=== PATIENT | female | born 1935 | race Caucasian/White ===

== ENCOUNTER → 2016-05-01 | Outpatient (CLI) | payer OTHER, BC ==
[~2016-05-01] MED LIST: ASPIRIN81 M2 PO; ATENOLOL 50 MG50 M1 PO; BENTYL10 MG PO; BIOTIN2500 MCG PO; DOXEPIN 75 MG C75 M1 PO; K-DUR 20 MEQ T20 MEQ PO; LASIX 20 MG TAB20 MG PO; LIPITOR10 MG PO; MOBIC7.5 MG PO; NORCO 5-325 TA1 EACH PO; PERCOCET 5-3251 EACH PO; PRILOSEC 20 MG20 MG PO
== END ==
LOC: RAD 16:00
DX: J90 Pleural effusion, not elsewhere classified (principal); R09.89 Other specified symptoms and signs involving the circulatory and respiratory systems

== ENCOUNTER 2016-05-21 11:36 | Inpatient (IN) | payer OTHER, BC ==
[~2016-05-21] VITALS: Ht 160 cm; Wt 82.4 kg
--- NOTE | ~2016-05-21 | EKG ---
[address] [place] [address] ELECTROCARDIOGRAM REPORT Name: CHET LUO Room #: 170-11 ADM IN M.R.#: [id number] Admission: 05/21/16 Attend Phys: Vitaliy Win Discharge: Date of : 35 Report #: [id number] THIS REPORT FOR: //name// [facility] ED Test Date: 2016-05-21 Test Time: 12:33:20 Pat Name: CHET LUO Department: Room: 170 Gender: F Certified Cytotechnologist: ARVIN : 1935 Requested By: Sai Li Order Number: [id number] MD: Roderick Gould Measurements Intervals [place] Rate: 59 P: DC: QRS: -2 QRSD: 107 T: 23 QT: 435 QTc: 431 Interpretive Statements Sinus rhythm. Incomplete left bundle branch block Low voltage, extremity leads No previous ECG available for comparison Electronically Signed On 05-21-2016 14:34:44 CDT by Roderick Gould [email or web address] <ELECTRONICALLY SIGNED> By: Roderick Gould MD 05/21/16 1434 1233 1233 Roderick Gould MD /RAFA
--- NOTE | ~2016-05-21 | S ---
[facility] [place] [address] SURGICAL PATH RPT PROCEDURE Name: SANTA VALDES Room #: 547-P DIS IN M.R.#: [id number] Admission: 05/21/16 Date of : 35 Discharge: 05/25/16 Report #: [id number] Path Case #: [id number] PATHOLOGY REPORT COLLECTION DATE: 05/21/2016 RECEIVED DATE: 05/22/2016 SUBMITTING PHYS: Dr. Freddy Deluna OTHER PHYS: Sai Cordero SPECIMEN(S) RECEIVED: A.Bone marrow, clot B.Bone marrow, biopsy C.Bone marrow, aspirate smears D.Peripheral smear * * * * * * * * * * * * FINAL DIAGNOSIS: Bone marrow aspirate, biopsy, cell clot and peripheral blood: - Peripheral blood with severe macrocytic normochromic anemia, severe thrombocytopenia and leukoerythroblastosis. - BONE MARROW WITH EXTENSIVE REPLACEMENT BY METASTATIC CARCINOMA. (PLEASE SEE COMMENT) COMMENT: The bone marrow biopsy shows extensive replacement of the normal hematopoiesis by metastatic carcinoma. The tumor cells are noted in small clusters, and are medium to large size with slightly round nuclear borders and small amount of cytoplasm. Few rare residual hematopoietic elements are noted. These findings are consistent with the patient's clinical history of breast cancer. Compared to the patient's previous mastectomy specimen ([id number]), both tumors appear morphologically similar. There is also mild dyserythropoiesis noted with few nuclear budding. These findings may represent myelodysplastic neoplasm however, it should be noted that with only few hematopoietic elements available for analysis, accurate morphologic evaluation of myelodysplastic changes is precluded. Correlation with clinical findings and cytogenetic studies is recommended. These findings were discussed with Dr. Ctaracho Cordero on 05/25/16 at 2:45 pm. Co-reviewed: Dr. Crystal Velazquez (JMQ:csd; d/t: 05/28/2016) PATHOLOGIST: Cynthia Mijares M.D. [address] [address] SURGICAL PATH RPT PROCEDURE Name: SANTA VALDES Room #: 547-P [facility] IN M.R.#: [id number] Admission: 05/21/16 Date of : 35 Discharge: 05/25/16 Report #: [id number] Path Case #: [id number] REPORT ELECTRONICALLY SIGNED BY: Cynthia Mijares M.D. DATE/TIME: 05/28/2016 23:29 * * * * * * * * * * * * MICROSCOPIC DESCRIPTION: CBC DATA (05/21/16): WBC: 12.0; RBC: 2.01; Hgb: 7.8; Hct: 24.3; MCV: 121.0; RDW: 23.3. Platelets: 80,000. White blood cell differential: 45% segs, 1% bands, 34% lymphs, 13% mono, 6% eos, 1% metamyelocytes, 29% nucleated red blood cells. Peripheral blood: Red blood cells are normochromic with mild anisopoikilocytosis including occasional microcytic and macrocytic forms, rare bite cells, rare schistocytes and few target cells. Occasional nucleated red blood cells are noted. White blood cells are normal in number with predominance of mature segmented neutrophils. There is mild myeloid left shift with rare metamyelocytes without circulating blasts observed. Platelets are severely decreased with normal morphology. The lymphocytes are mostly small and mature. Bone marrow aspirate: Aspirate smears are hemodilute containing no spicules. Few scattered hematopoietic elements are noted. Erythroid precursors show few nuclear budding. Megakaryocytes are not easily identified. There is no increase in blasts identified. Touch imprints from the core biopsy shows clusters of epithelioid cells. The epithelioid cells are medium to large size with fairly round slightly irregular nuclear borders and small amount of cytoplasm. Iron stain: negative due to inadequate tissue present Bone marrow biopsy and cell clot: The normal marrow hematopoiesis is extensively replaced by metastatic carcinoma, similar to the epithelioid cells noted in the touch imprints. Rare residual hematopoietic elements are noted. The cell clot is mostly composed of clotted blood with few clusters of malignant epithelioid cells. Iron stain: adequate (JA:csd; d/t: 05/28/2016) Flow cytometry: Immunophenotypic studies by flow cytometry do not show diagnostic phenotypic abnormalities. An increased percentage of NK cells is detected. The significance of this is uncertain. This may represent a reactive population, but a lymphoproliferative disorder cannot be excluded. Benign NK cells can be seen in association with viral infections. There is no evidence of acute leukemia, B-cell lymphoma, plasma cell dyscrasia, or immunophenotypic changes associated with myelodysplasia detected in this analysis. T-cells comprise approximately 49% of total cells with a CD4:CD8 ratio of 0.8 without overt phenotypic abnormality. NK-cells are increased and are CD56 [facility] [place] [place] [address] [place] [address] SURGICAL PATH RPT PROCEDURE Name: SANTA VALDES Room #: 443-P DIS IN M.Jessica.#: [id number] Admission: 05/21/16 Date of : 35 Discharge: 05/25/16 Report #: [id number] Path Case #: [id number] positive, CD16 positive, CD3 negative, CD2 positive, CD5 negative, and CD7 positive. Mature B-cells comprise approximately 7% of lymphoid cells, are polyclonal with a kappa lamda ratio of 1.75. Monocytes and granulocytes show phenotypic evidence of maturation without dysmaturation. Blasts are not increased (please see separate flow cytometry report from [email or web address] [id number]). (JMQ:; d/t: 05/28/16) GROSS PATHOLOGY: A. Received in formalin labeled "Santa Valdes and clot (BM aspirate)," is blood coagulum, measuring 1.8 x 1.3 x 0.2 cm in aggregate dimensions. The specimen is submitted entirely in cassette A1. B. Received in formalin labeled "Santa Valdes and BM biopsy," are 4 needle cores of fang bone, ranging from 0.3 to 1.2 cm in length and 0.2 cm in diameter. The specimen is submitted entirely in cassette B1, following decalcification. (TTL; 05/23/2016) PROCEDURE: The bone marrow biopsy is performed by Dr. Keith Deluna at [facility] [place] [place]. Specimens are submitted for morphology, flow cytometry and cytogenetic studies. CLINICAL HISTORY: The patient is an 80-year-old female with a clinical history of breast cancer. A bone marrow biopsy is performed. INITIAL CPT CODE(S): 47890 A; 92359, 78108 B; 26487, 93052 C; 05180, 69782 Professional services performed by [facility] at [facility], [address] [place] [address]. Technical services performed by [facility] at [address] [place] [address], [address], [place] [address]. [facility] [address] [place] [address] PHONE: [phone] DIRECTOR: Burke Gaspar M.D. * * * END OF REPORT * * *
--- NOTE | ~2016-05-21 | EKG ---
[address] [place] [place] [address] ELECTROCARDIOGRAM REPORT Name: CHET LUO Room #: 170-11 ADM IN M.R.#: [id number] Admission: 05/21/16 Attend Phys: Vitaliy Win Discharge: Date of : 35 Report #: [id number] THIS REPORT FOR: //name// [facility] ED Test Date: 2016-05-21 Test Time: 14:18:31 Pat Name: CHET LUO Department: Room: 170 Gender: F Treasury Assistant: MZOOK : 1935 Requested By: Sai Li Order Number: [id number] MD: Roderick Gould Measurements Intervals [place] Rate: 60 P: KS: QRS: 14 QRSD: 109 T: 28 QT: 451 QTc: 451 Interpretive Statements Sinus rhythm Low voltage, extremity leads No previous ECG available for comparison Electronically Signed On 05-21-2016 14:38:53 CDT by Roderick Gould [email or web address] <ELECTRONICALLY SIGNED> By: Roderick Gould MD 05/21/16 1438 1418 1418 MD KEVYN Arroyo
--- NOTE | ~2016-05-21 | P ---
[facility] [place] [address] PROCEDURE REPORT Name: CHET LUO Room #: 547-P [facility] IN M.R.#: [id number] Admission: 05/21/16 Attend Phys: Vitaliy Win Discharge: 05/25/16 Date of : 35 Report #: [id number] THIS REPORT FOR: //name// CC: Maame Cordero MD BRIEF HISTORY: The patient is an 80-year-old woman with a history of metastatic breast cancer who has an abnormal gastric emptying study and also an abnormal upper GI with incomplete distention of the stomach. Discussed with Dr. Cordero, he is concerned about metastatic involvement of the stomach with her breast cancer. PREOPERATIVE DIAGNOSIS: Abdominal pain and abnormal radiologic studies of stomach. POSTOPERATIVE DIAGNOSES: 1. Thickened folds of stomach. 2. Small hiatus hernia. MEDICATIONS: Deep sedation with propofol per anesthesia. SPECIMEN: Biopsies of gastritis. ESTIMATED BLOOD LOSS: 3 mL. PROCEDURE: EGD with biopsy. FINDINGS: Prior to propofol sedation, procedure of upper endoscopy was discussed with the patient as well as potential risks, benefits, and complications. She indicates she understands and desires to proceed. DESCRIPTION OF PROCEDURE: With the patient in left lateral decubitus position, the Wagoni video endoscope was inserted in the cervical esophagus under direct vision without difficulty. Examination of this organ through its entire length revealed normal esophageal mucosa. The scope was advanced and a small hiatus hernia was encountered. The mucosa in the hernia was unremarkable. The scope was advanced into the stomach, which was examined on end view as well as retroflexed views. Upon entering the stomach, the gastric folds appeared very prominent; however, they appeared benign and the mucosa was intact without evidence of ulcerations or erosions. This pattern was most notable in the body and the fundus of the stomach. In the antrum, the folds were less prominent. The stomach was fully insufflated. The area was examined in a retroflexed position, no mass lesions were seen. It is noted that upon full insufflation, the stomach with air, not all the gastric folds completely flattened. There was [facility] [address] [place] [address] PROCEDURE REPORT Name: CHET LUO Guadalupe Room #: 547-P DIS IN .R.#: [id number] Admission: 05/21/16 Attend Phys: Vitaliy Win Discharge: 05/25/16 Date of : 35 Report #: [id number] still fairly prominent. The pylorus was normal. Duodenal bulb was normal. Postbulbar duodenal sweep was normal. At that point, the scope was withdrawn and careful circumferential views were obtained. Biopsies obtained of the gastric folds. Scope was withdrawn. The patient tolerated the procedure well. In addition, the esophageal varices were not seen. DISPOSITION: The patient with metastatic breast cancer and abnormal studies as noted above. I do not see obvious malignant lesion in her stomach. However, the folds are much more prominent than usual, not completely flattened. Biopsies were obtained, but it is possible she may have metastatic involvement of the murcia of the stomach which may not be evident on mucosal biopsies. We will follow up on biopsies and make further recommendations. If biopsies were nondiagnostic, consider endoscopic ultrasound for further evaluation. <ELECTRONICALLY SIGNED> By: Cortes Paredes MD 05/28/16 1538 1517 0234 Cortes Paredes MD /nt
--- NOTE | ~2016-05-21 | 2DMMODE ---
[facility] [place] [address] 2 D/M-MODE ECHOCARDIOGRAM Name: CHET LUO Room #: 207-P [facility] [place] [facility].#: [id number] Admission: 05/21/16 Attend Phys: Vitaliy Felix Discharge: Date of : 35 Date of Service: 05/22/16 1528 Report #: [id number] THIS REPORT FOR: //name// APPROVED REPORT Study performed: 05/22/2016 13:30:03 EXAM: Comprehensive 2D, Doppler, and color-flow Echocardiogram Patient Location: Bedside Blood Pressure: 172/60 mmHg HR: 68 bpm Other Information Study Quality: Good Indications Abnormal ECG 2D Dimensions RVDd: 35.05 mm LVEF(%): 63.58 (>50%) IVSd: 8.69 (7-11mm) LVOT Diam: 17.09 (18-24mm) LVDd: 58.86 mm PWd: 9.70 (7-11mm) Ascending Aorta: 31.66 mm LVDs: 38.20 (25-40mm) IVC: 18.00 mm Aortic Root: 28.63 mm Ruiz's LVEF: 63.58 % Volumes Left Atrial Volume (Systole) Single Plane 4CH: 64.82 mL Single Plane 2CH: 58.81 mL LA ESV Index: 37.00 mL/m2 Aortic Valve AoV Peak Jules.: 1.93 m/s AO Peak Gr.: 14.89 mmHg LV Max P.72 mmHg LV Max: 1.20 m/s Mitral Valve MV PHT: 90.81 ms MV E Max Jules.: 1.35 m/s E/A Ratio: 1.1 MV A Jules.: 1.18 m/s MV Decel. Time: 313.13 ms [facility] [place] [address] 2 D/M-MODE ECHOCARDIOGRAM Name: CHET LUO Room #: 207-P [facility] [place] ..#: [id number] Admission: 05/21/16 Attend Phys: Vitaliy Felix Discharge: Date of : 35 Date of Service: 05/22/16 1528 Report #: [id number] Pulmonary Valve PV Peak Jules.: 1.17 m/s PV Peak Gr.: 5.43 mmHg Tricuspid Valve TR Peak Jules.: 3.04 m/s RAP Estimate: 5.00 mmHg TR Peak Gr.: 36.92 mmHg Left Ventricle The left ventricle is normal size. There is normal LV segmental wall motion. There is normal left ventricular wall thickness. The left ventricular systolic function is normal. The left ventricular ejection fraction is within the normal range. LVEF is 55-60%. Grade II diastolic dysfunction Right Ventricle The right ventricle is normal size. The right ventricular systolic function is normal. Atria Left atrium is dilated. The right atrium size is normal. Aortic Valve The aortic valve is normal in structure. No aortic regurgitation is present. There is no aortic valvular stenosis. Mitral Valve The mitral valve is normal in structure. Trace mitral regurgitation. There is no mitral valve stenosis. Tricuspid Valve The tricuspid valve is normal in structure. There is trace tricuspid regurgitation. The right atrial pressure is estimated at 5 mmHg. There is mild pulmonary hypertension. The estimated PAP was 42 mmHg. Pulmonic Valve The pulmonary valve is normal in structure. There is no pulmonic valvular regurgitation. Great Vessels The aortic root is normal in size. IVC is normal in size and collapses >50% with inspiration. Pericardium There is no pericardial effusion. [facility] [address] [place] [address] 2 D/M-MODE ECHOCARDIOGRAM Name: CHET LUO Room #: 207-P [facility] [place] ..#: [id number] Admission: 05/21/16 Attend Phys: Vitaliy Felix Discharge: Date of : 35 Date of Service: 05/22/16 1528 Report #: [id number] <Conclusion> The left ventricular systolic function is normal. There is normal LV segmental wall motion. LVEF is 55-60%. Grade II diastolic dysfunction Left atrium is dilated. The aortic valve is normal in structure; No aortic valvular stenosis or insufficiency. There is mild pulmonary hypertension. The estimated PAP was 42 mmHg. There is no pericardial effusion. <ELECTRONICALLY SIGNED> By: Andrews Blackwood MD, FACC 05/22/16 1528 1528 1528 Andrews Blackwood MD, [facility] /INF
--- NOTE | ~2016-05-21 | HC ---
[facility] [place] [address] CONSULTATION Name: CHET LUO Room #: 207-P [facility] IN M.R.#: [id number] Admission: 05/21/16 Attend Phys: Vitaliy Win Discharge: Date of : 35 Report #: [id number] THIS REPORT FOR: //name// CC: Maame Cordero REASON FOR CONSULTATION: History of breast cancer and cytopenias. HISTORY OF PRESENT ILLNESS: The patient is an 80-year-old female who has been a patient of mine for quite some time, who recently has been followed for breast cancer. It was found to be progressive on a PET scan in early 2016. We are making plans to switch from Ibrance and Femara to Xeloda. She had been having some worsening macrocytosis and anemia and liver function test. PET scan had shown bony disease, had not really showing any liver disease. We have been trying to get her in for bone marrow biopsy, but she had had an intercurrent respiratory infection, which has now improved. She had some progressive weakness and was admitted to the hospital yesterday. At this time, she does not really have any headache, fevers or chills. Does have anorexia with some slight nausea, not really has any emesis. No trouble swallowing. Mouth is extremely dry. Did have troubles with restless legs that was exacerbated with her Compazine. Does have upper abdominal discomfort and fullness, worse when she eats, worse with pressure. It sounds like no blood in her urine or stool; may be has slightly loose bowels, not really constipation. Has had weak legs, it is generalized in nature, not right or left. No skin rash. Not really any arm or leg swelling and just sort of feels very fatigued, not really short of breath. No trouble moving her air. PAST MEDICAL HISTORY: Notable for the history of the breast cancer, originally diagnosed in 1999 with a left-sided stage II ER, [place] positive breast cancer, had 4 cycles of Taxotere, Cytoxan, then Tamoxifen. Note the Arimidex was poorly tolerated at that time. She then had a second contralateral left breast cancer in January 2012. It was 17 nodes positive and also at that same time has shown bony metastasis. In February of 2012, she was begun on Faslodex and Arimidex, with a drop in her tumor markers. She also had radiation with Dr. Antony. She continued on those drugs until January 2015 and at that time, had a PET scan that showed progressive disease and we switched to Palbociclib and Femara. She was on that from January of 2015 until March of 2016, when a scan showed progressive disease, slightly from the prior one. Also had a pleural effusion and I do not believe any changes in the liver and those were discontinued and the plan was to begin Xeloda, though she has had several respiratory infections that have made her difficult since that time. She has also had a history of macrocytosis noted in July of 2015. Liver functions have been normal at that time. MCV was as high as 123. Also has a history of lipid abnormality, also [facility] [address] [place] [address] CONSULTATION Name: CHET LUO Room #: 207-P [facility] IN M.R.#: [id number] Admission: 05/21/16 Attend Phys: Vitaliy Win Discharge: Date of : 35 Report #: [id number] hypothyroidism, also history of presumed restless legs. She also has a history of right total hip replacement in 1995, cholecystectomy with one tube and ovary removed in the past, irregular heart beat or palpitations periodically, has a history of hiatal hernia and reflux and left hip replacement. SOCIAL HISTORY: She is a former smoker. Alcohol, not drinking currently. several years ago. MEDICATIONS: As an outpatient had included acyclovir 400 mg for cold sores; aspirin 81 mg; atenolol 50 mg; azithromycin, which had been completed; calcium carbonate daily; capecitabine, which had not been begun yet; cyclobenzaprine as needed; Xgeva, denosumab, as an outpatient; docusate as needed; Sinequan 75 mg at bedtime; furosemide 20 mg daily; hydrocodone p.r.n.; levothyroxine 25 mcg daily; meloxicam 7.5 mg daily; omeprazole 20 mg daily; potassium chloride 20 mEq daily; Mirapex 0.5 mg as needed and Compazine, which caused restless legs has been held. Medications here in the hospital currently include aspirin 81 mg, simethicone 80 mg p.r.n., doxepin 50 at bedtime, cefuroxime 250 mg b.i.d., atorvastatin 10 mg at bedtime, furosemide 40 b.i.d., Zofran 4 mg q.4h. p.r.n., Percocet q.4h. p.r.n., Tylenol p.r.n., Ambien 5 mg p.r.n., MiraLax 17 grams daily p.r.n., nitroglycerin p.r.n. and IV fluids. PHYSICAL EXAMINATION: GENERAL: The patient appears her stated age. VITAL SIGNS: Height is 5 feet 3, 160 cm. Weight is 184 pounds, which is 83.5 kilograms. Blood pressure is 159/40, O2 sat 92%, respirations 20, pulse 69 and temperature 97.5. MOOD: She is pleasant and conversant. NEUROLOGIC: Moving extremities. HEENT: Face is symmetrical. Oropharynx is clear of injection or erythema. It is dry. No leukoplakia. LUNGS: Appear to have clear, symmetric unlabored respirations. HEART: Appears to be regular rate. LYMPHATICS: No enlarged lymph nodes in the supraclavicular, cervical or inguinal region. ABDOMEN: Slightly obese. It is slightly tender in the upper quadrant. I think I may feel enlarged liver in the epigastrium. EXTREMITIES: Without clubbing or cyanosis. There may be some trace edema. LABORATORY DATA: Lab on this admit has included a BUN of 23, creatinine of 1.7. Total bilirubin of 2.4, which is similar to that as an outpatient within the last month or so; AST 107, which is not dissimilar ; direct bilirubin is 1 and alkaline phosphatase 249. Uric acid 11.7. Albumin 2.3. Iron is 143, TIBC 158 and percent saturation 91. Coags are pending. White count 12; hemoglobin 7.8, which is not dissimilar; MCV 121, unchanged; RDW 23.3 and platelet count 80,000, [place] [address] CONSULTATION Name: CHET LUO Guadalupe Room #: 207-P ADM IN M.R.#: [id number] Admission: 05/21/16 Attend Phys: Vitaliy Win Discharge: Date of : 35 Report #: [id number] which has been present for about 4 months. Differential does include metamyelocytes and some NRBCs. Haptoglobin pending. TSH 4.2. Folate 17.7. B12 greater than 6000. U/A did show 0-3 squamous cells, few white cell clumps, 6-15 per high-powered field white cells, rbcs 0-2 and bacteria 1-9. Imaging this admit includes chest x-ray from yesterday with decreased inspiratory effort, mild congestive heart failure, could be similar in appearance to some of the perihilar and basilar prominence. Ultrasound ordered and is pending. ASSESSMENT AND PLAN: 1. Metastatic breast cancer, most likely progressive on recent PET scan from March, awaiting bone marrow results before proceeding with Xeloda. I am concerned this may be progressive disease, myelophthisic process in the bone marrow, but it can also be MDS from past chemo. We will hold off on Xeloda or other chemo until we have bone marrow results. 2. Cytopenias. We will check bone marrow biopsy. I do not think this is a B12, folate or iron deficiency picture. I am still not that strongly suspicious of that is on the differential with an elevated LDH and total bilirubin. We will check a hemosiderin and haptoglobin. Note that Syed is negative. 3. Abdominal discomfort with liver function elevation. We will check ultrasound to check liver. 4. Hypothyroid, replace. 5. Hyperlipidemia. Continues atorvastatin. 6. Hypertension. Meds as needed. 7. Reflux. PPI as needed. 8. Restless legs, Mirapex as needed. 9. Nausea, Zofran. Avoid Compazine. 10. Bony mets, had been on denosumab. We will follow with you. <ELECTRONICALLY SIGNED> By: Catracho Cordero MD 05/23/16804 08 1217 Catracho Cordero MD /nt
[2016-05-21 11:37] VITALS: BP 196/94
[2016-05-21 11:55] LABS: URINE BILIRUBIN NEGATIVE (Negative); URINE BLOOD NEGATIVE (Negative); URINE COLOR YELLOW; URINE GLUCOSE-RANDOM* NEGATIVE (Negative); URINE KETONES NEGATIVE (Negative); URINE NITRITE NEGATIVE (Negative); URINE PROTEIN (DIPSTICK) NEGATIVE (Negative); URINE UROBILINOGEN 0.2 E.U./dl (0.2-1.0)
[2016-05-21 12:04] LABS: CASTS None Seen /LPF (None Seen); CRYSTALS None Seen /LPF (None Seen); SQUAMOUS 0-3 Few /LPF (0-3)
[2016-05-21 12:05] LABS: BACTERIA 1-9 Few /HPF (None Seen); URINE RBC 0-2 Rare /HPF (0-2); URINE WBC 6-15 Few /HPF (0-5); WBC CLUMPS Few (None Seen)
[2016-05-21 12:57] LABS: HEMATOCRIT 24.3 % (37.0-47.0); HEMOGLOBIN 7.8 gm/dL (12.0-15.0); MCH 38.8 pg (26.0-34.0); MCHC 32.1 g/dL (28.0-37.0); RBC 2.01 mil/uL (4.20-5.00); RDW 23.3 % (10.5-14.5)
[2016-05-21 12:59] LABS: MANUAL DIFF YES
[2016-05-21 13:40] LABS: NUCLEATED RBCS 29 /100WBC; PLATELET COUNT 80 thou/uL (150-400); TOTAL CELL COUNT 100
[2016-05-21 13:48] LABS: ABSOLUTE NEUTROPHILS 4.3 thou/uL (1.4-8.2); ANISOCYTOSIS 2+; MACROCYTES 2+; METAMYELOCYTES 1 %
[2016-05-21 15:09] LABS: ALBUMIN 2.5 g/dL (3.4-5.0); TOTAL BILIRUBIN 2.4 mg/dL (<0.1-1.0); TOTAL PROTEIN 6.4 g/dL (6.4-8.2)
[2016-05-21 15:19] LABS: ANION GAP 10 mmol/L (7-16); BUN 25 mg/dL (7-18); CALCIUM 7.8 mg/dL (8.5-10.1); CHLORIDE 106 mmol/L (98-107); CO2 18 mmol/L (21-32); CREATININE 1.7 mg/dL (0.6-1.0); GLUCOSE 87 mg/dL (74-106); NT-PRO BRAIN NAT PEPTIDE 1999 pg/mL (<300); SODIUM 134 mmol/L (136-145); TROPONIN-I < 0.04 ng/mL (<0.04-0.07)
[2016-05-21 15:26] LABS: POTASSIUM 6.1 mmol/L (3.5-5.1)
[2016-05-21 16:30] VITALS: BP 178/63
[2016-05-21 16:33] LABS: % SATURATION 91 % (20-39); IRON 143 ug/dL (50-170); TIBC 158 ug/dL (250-450); UIBC 15 ug/dL
[2016-05-21 17:35] LABS: FOLIC ACID 17.7 ng/mL (8.6-58.9)
[2016-05-21] MEDS ORDERED: XGEVA120 MG/1.7 SQ (18:50)
[2016-05-21 20:11] VITALS: BP 176/54
[2016-05-22] VITALS (7 sets, daily range): BP systolic 147–175; BP diastolic 40–70
[2016-05-22 05:07] LABS: ALBUMIN 2.3 g/dL (3.4-5.0); CALCIUM 7.9 mg/dL (8.5-10.1); CREATININE 1.7 mg/dL (0.6-1.0); PHOSPHORUS 2.9 mg/dL (2.5-4.9); POTASSIUM 4.7 mmol/L (3.5-5.1)
[2016-05-22 08:07] LABS: INR 1.5; PROTIME 15.2 Seconds (9.3-11.4)
[2016-05-23 03:59] VITALS: BP 151/47
[2016-05-23 04:08] LABS: ALBUMIN 2.4 g/dL (3.4-5.0); CALCIUM 7.9 mg/dL (8.5-10.1); CREATININE 1.5 mg/dL (0.6-1.0); PHOSPHORUS 2.7 mg/dL (2.5-4.9); POTASSIUM 4.2 mmol/L (3.5-5.1)
[2016-05-23 05:26] LABS: HEMATOCRIT 22.1 % (37.0-47.0); HEMOGLOBIN 7.1 gm/dL (12.0-15.0); MCHC 32.2 g/dL (28.0-37.0); RBC 1.87 mil/uL (4.20-5.00); RDW 23.1 % (10.5-14.5)
[2016-05-23 06:51] LABS: WBC 8.5 thou/uL (4.0-11.0)
[2016-05-23 07:11] VITALS: BP 171/40
[2016-05-23 08:56] LABS: HEMATOCRIT 23.6 % (37.0-47.0); HEMOGLOBIN 7.7 gm/dL (12.0-15.0); MCH 38.1 pg (26.0-34.0); MCHC 32.7 g/dL (28.0-37.0); MCV 116.5 fL (80.0-100.0); OBSERVED RETIC COUNT 4.19 % (0.6-2.6); PLATELET COUNT 76 thou/uL (150-400); RBC 2.03 mil/uL (4.20-5.00); RDW 22.6 % (10.5-14.5); WBC 14.7 thou/uL (4.0-11.0)
[2016-05-23 09:13] LABS: MANUAL DIFF YES
[2016-05-23 09:21] VITALS: BP 173/45
[2016-05-23 10:23] LABS: ABSOLUTE NEUTROPHILS 5.2 thou/uL (1.4-8.2); ANISOCYTOSIS 2+; LARGE PLATELETS FEW; NUCLEATED RBCS 45 /100WBC; PLATELET ESTIMATE DECREASED; POLYCHROMASIA 1+; TOTAL CELL COUNT 100
[2016-05-23 10:24] LABS: MACROCYTES 2+; MICROCYTES 2+
[2016-05-23 21:05] VITALS: BP 168/55
[2016-05-24 04:00] VITALS: BP 169/54
[2016-05-24 04:15] LABS: HEMATOCRIT 24.7 % (37.0-47.0); MCH 36.9 pg (26.0-34.0); RBC 2.26 mil/uL (4.20-5.00)
[2016-05-24 04:18] LABS: HEMOGLOBIN 8.3 gm/dL (12.0-15.0); MCHC 33.7 g/dL (28.0-37.0); PLATELET COUNT 62 thou/uL (150-400); RDW 27.2 % (10.5-14.5)
[2016-05-24 04:31] LABS: ALBUMIN 2.1 g/dL (3.4-5.0); DIRECT BILIRUBIN 0.8 mg/dL (<0.1-0.3); TOTAL BILIRUBIN 2.2 mg/dL (<0.1-1.0); TOTAL PROTEIN 5.7 g/dL (6.4-8.2)
[2016-05-24 04:50] LABS: MCV 109.4 fL (80.0-100.0)
[2016-05-24 04:51] LABS: MANUAL DIFF YES
[2016-05-24 07:34] VITALS: BP 180/61
[2016-05-24 07:37] LABS: ABSOLUTE NEUTROPHILS 4.3 thou/uL (1.4-8.2); METAMYELOCYTES 1 %; NUCLEATED RBCS 44 /100WBC; TOTAL CELL COUNT 100
[2016-05-24 07:38] LABS: ANISOCYTOSIS 3+; MACROCYTES 2+; POLYCHROMASIA 1+
[2016-05-24 07:39] LABS: MICROCYTES 1+
[2016-05-24 21:08] VITALS: BP 183/55
[2016-05-25 01:43] VITALS: BP 126/50
[2016-05-25 05:06] VITALS: BP 128/50
[2016-05-25 06:46] LABS: HEMOGLOBIN 8.6 gm/dL (12.0-15.0); MCH 36.6 pg (26.0-34.0); MCHC 33.6 g/dL (28.0-37.0)
[2016-05-25 06:50] LABS: HEMATOCRIT 25.5 % (37.0-47.0); RBC 2.34 mil/uL (4.20-5.00); RDW 26.8 % (10.5-14.5); WBC 11.4 thou/uL (4.0-11.0)
[2016-05-25 07:17] LABS: ALBUMIN 2.2 g/dL (3.4-5.0); CALCIUM 7.3 mg/dL (8.5-10.1); CREATININE 1.3 mg/dL (0.6-1.0); PHOSPHORUS 2.1 mg/dL (2.5-4.9); POTASSIUM 3.8 mmol/L (3.5-5.1)
[2016-05-25 09:06] VITALS: BP 150/58
[2016-05-25] MEDS ORDERED: LOPRESSOR25 PO (11:53)
[2016-05-25] MEDS ORDERED: TRAMADOL 50 MG50 MG PO (11:54)
[2016-05-25] MEDS ORDERED: CEFUROXIME250 MG PO (11:55)
[2016-05-25] MEDS ORDERED: PROTONIX40 M1 PO (11:56)
[2016-05-25 12:47] VITALS: BP 150/58
[2016-05-25 16:03] VITALS: BP 166/66
[2016-05-25 16:28] VITALS: BP 150/58
== END 2016-05-25 18:08 | disposition home health service (06) | DRG 597 ==
LOC: ER 11:36 → EROBS 14:17 → 2N 14:17 → 5S 05-23 11:21
PROVIDERS: Hospitalist; Internal Medicine Gastroenterology; Internal Medicine Hematology & Oncology; Nurse Practitioner
PROC: 07DR3ZX Extraction of Iliac Bone Marrow, Percutaneous Approach, Diagnostic (ICD-10-PCS; 2016-05-22)
PROC: 0DB68ZX Excision of Stomach, Via Natural or Artificial Opening Endoscopic, Diagnostic (ICD-10-PCS; principal; 2016-05-25)
DX: C50.912 Malignant neoplasm of unspecified site of left female breast (principal); E43 Unspecified severe protein-calorie malnutrition; I50.31 Acute diastolic (congestive) heart failure; C79.52 Secondary malignant neoplasm of bone marrow; N39.0 Urinary tract infection, site not specified; Z96.643 Presence of artificial hip joint, bilateral; D64.9 Anemia, unspecified; E03.9 Hypothyroidism, unspecified; G25.81 Restless legs syndrome; K21.9 Gastro-esophageal reflux disease without esophagitis; E78.5 Hyperlipidemia, unspecified; K44.9 Diaphragmatic hernia without obstruction or gangrene; E87.5 Hyperkalemia; K31.84 Gastroparesis; D69.6 Thrombocytopenia, unspecified; M13.852 Other specified arthritis, left hip; M46.86 Other specified inflammatory spondylopathies, lumbar region; I11.0 Hypertensive heart disease with heart failure; I45.9 Conduction disorder, unspecified; Z90.49 Acquired absence of other specified parts of digestive tract; Z90.721 Acquired absence of ovaries, unilateral; Z68.32 Body mass index [BMI] 32.0-32.9, adult; Z90.79 Acquired absence of other genital organ(s); Z90.13 Acquired absence of bilateral breasts and nipples; Z86.010 Personal history of colon polyps; Z87.11 Personal history of peptic ulcer disease; Z92.21 Personal history of antineoplastic chemotherapy; Z87.891 Personal history of nicotine dependence; Z80.0 Family history of malignant neoplasm of digestive organs
CPT/HCPCS: 10194; 10785; 62110; 62900

== ENCOUNTER → 2016-06-01 | Outpatient (CLI) | payer OTHER, BC ==
[~2016-06-01] VITALS: Ht 160 cm; Wt 79.4 kg
[~2016-06-01] MED LIST changes: +CEFUROXIME250 MG PO; +HYDROCODONE-AP1 EAC6 PO; +LEVOTHYROXIN0.025 MG PO; +LOPRESSOR25 PO; +PROTONIX40 M1 PO; +TRAMADOL 50 MG50 MG PO; +XGEVA120 MG/1.7 SQ
[2016-06-01 10:06] VITALS: BP 155/44
[2016-06-01 10:33] LABS: HEMATOCRIT 29.1 % (37.0-47.0); HEMOGLOBIN 9.5 gm/dL (12.0-15.0); MCH 36.3 pg (26.0-34.0); MCHC 32.7 g/dL (28.0-37.0); MCV 111.1 fL (80.0-100.0); RBC 2.61 mil/uL (4.20-5.00); RDW 26.4 % (10.5-14.5); WBC 9.7 thou/uL (4.0-11.0)
[2016-06-01 10:42] LABS: CALCIUM 8.5 mg/dL (8.5-10.1); CREATININE 1.9 mg/dL (0.6-1.0); POTASSIUM 5.3 mmol/L (3.5-5.1)
[2016-06-01 10:46] LABS: APTT 34.1 Seconds (24.5-32.8); INR 1.7; PROTIME 17.4 Seconds (9.3-11.4)
== END ==
LOC: SPEC 09:23
PROVIDERS: Internal Medicine Hematology & Oncology
DX: C50.919 Malignant neoplasm of unspecified site of unspecified female breast (principal); Z45.2 Encounter for adjustment and management of vascular access device; K21.9 Gastro-esophageal reflux disease without esophagitis; I10 Essential (primary) hypertension; E78.5 Hyperlipidemia, unspecified

== ENCOUNTER 2016-06-06 11:37 | Inpatient (IN) | payer OTHER, BC ==
[~2016-06-06] VITALS: Ht 157.5 cm; Wt 87.2 kg
--- NOTE | ~2016-06-06 | HC ---
[facility] [place] [address] CONSULTATION Name: CHET LUO Guadalupe Room #: 237-P [facility] IN M.R.#: [id number] Admission: 06/06/16 Attend Phys: Gutierrez Quesada DO Discharge: Date of : 35 Report #: [id number] THIS REPORT FOR: //name// CC: Gutierrez Srivastava PRIMARY CARE PHYSICIAN: Dr. Maame Srivastava. REFERRAL PHYSICIAN: Dr. Quesada. REASON FOR REFERRAL: Hemoptysis. HISTORY OF PRESENT ILLNESS: The patient is an 80-year-old white female who was admitted with bleeding from the Port-A-Cath site. Since admission, she has developed hemoptysis. A pulmonary consultation was requested. The patient had been diagnosed with breast carcinoma with extensive metastases involving the bone marrow, gastric wall. The patient has been undergoing chemotherapy including Taxol. She had Port-A-Cath placed on the right a few days ago. Few days later, she started having developed bleeding around the Port-A-Cath site. For that reason, the patient was hospitalized. She has also noted easy bruisability around the skin. According to the family, the patient has had episodic hemoptysis for the past 2 weeks. She denies any hemoptysis. PAST MEDICAL HISTORY: As mentioned above including left breast CA with metastases. She is ER/GA positive, undergoing chemotherapy at least 4 cycles including Taxotere, Cytoxan, and tamoxifen. Of note, the initial diagnosis for breast cancer was in January 2012 with 17 nodes being positive along with bony metastases in February 2012. The patient has also received radiation therapy. She also has hypothyroidism, restless legs, status post right total hip replacement, cholecystectomy, oophorectomy. She has a history of hiatal hernia, gastroesophageal reflux disease. ALLERGIES: None to medications. MEDICATIONS: List reviewed. She is currently on Lasix, Synthroid, Protonix, insulin, metoprolol, hydralazine, hydrocodone, and atorvastatin. FAMILY HISTORY: Noncontributory. SOCIAL HISTORY: The patient has smoked in the past, but quit many years ago. She is . She has children. [address] [address] CONSULTATION Name: QUINTIN LUOABHISHEK Butcher Room #: 237-P [facility] IN .R.#: [id number] Admission: 06/06/16 Attend Phys: Gutierrez Quesada DO Discharge: Date of : 35 Report #: [id number] REVIEW OF SYSTEMS: As mentioned above. Otherwise, 10-point system review negative. PHYSICAL EXAMINATION: GENERAL: She is awake, alert, in no apparent distress. VITAL SIGNS: Temperature is 99.7 degrees Fahrenheit, pulse is 84, respiratory rate is 18, blood pressure is 175/84 mmHg, saturation is 91%. HEENT: Normocephalic and atraumatic. NECK: Supple, without lymphadenopathy or thyromegaly. CHEST: Breath sounds are decreased due to poor effort. Few scattered crackles in the bases. Chest wall, moderate ecchymosis noted around the right Port-A-Cath upper chest area. CARDIOVASCULAR: Normal S1, S2. There are no murmurs or gallop. There is no JVD. There carotid bruit. Pulses are 2+/4+ bilaterally. ABDOMEN: Soft, nontender, no organomegaly or masses felt. EXTREMITIES: There is no cyanosis or clubbing but remarkable for 3+ bilateral pretibial edema. Chest x-ray showed bilateral interstitial infiltrates. LABORATORY DATA: Sodium 138, potassium 4.9, chloride 107, CO2 is 15, BUN is 37, creatinine 1.7. WBC 6800, hemoglobin is 8.9, platelets of 48,000. INR is 1.6, was at 3.1, albumin 2.6. IMPRESSION: 1. Hemoptysis in this 80-year-old white female with diffuse metastatic breast carcinoma. She was admitted with bleeding complications, felt to be related to a coagulopathy. The patient's hemoptysis is likely related to underlying coagulopathy. Pulmonary embolus is felt to be less likely given a partial anticoagulant status. 2. Metastatic breast cancer as mentioned above. 3. Coagulopathy with thrombocytopenia, recent chemotherapy. 4. Liver abnormality, possible metastatic disease. 5. Renal insufficiency, appears to be chronic with previous creatinine of 1.6 in 2012. 6. Protein calorie malnutrition. RECOMMENDATION: I think the patient's hemoptysis is secondary to underlying coagulopathy with other bleeding complication as noted. For now, recommend continue observation. She does have progressive hypoxia, probably related to alveolar hemorrhage. Would try to keep saturation about 90% if possible. Overall, prognosis felt to be a poor given a diffuse metastatic breast CA. We discussed with the family. If the patient becomes progressively hypoxic, family desires aggressive treatment, will need to transfer to the ICU. [facility] [address] [place] [address] CONSULTATION Name: CHET LUO Room #: 237-P [facility] IN M.R.#: [id number] Admission: 06/06/16 Attend Phys: Gutierrez Quesada DO Discharge: Date of : 35 Report #: [id number] Correcting the coagulopathy will be the main treatment for now. We will defer to hematology. Thank you for this consultation. <ELECTRONICALLY SIGNED> By: Mark Hinkle MD 06/09/16 1756 1704 0329 Mark Hinkle MD /nt
--- NOTE | ~2016-06-06 | DEA ---
[facility] [place] [address] SUMMARY Name: CHET LUO Room #: 237-P [facility] IN M.R.#: [id number] Admission: 06/06/16 Attend Phys: Gutierrez Quesada DO Discharge: 06/09/16 Date of : 35 Report #: [id number] THIS REPORT FOR: //name// CC: Gutierrez Schroederfer Atif DATE OF : As documented in the chart. ADMISSION DIAGNOSES: 1. Ekkih-ta-tghbzqd anemia. 2. Hyperkalemia. 3. Givzu-xo-gxjgchm renal failure. 4. Diabetes. 5. Elevated LFT. HISTORY OF PRESENT ILLNESS: This patient has a history of breast CA, metastatic to the bone marrow and lymph node. The patient is followed by Dr. Cordero. She came to the emergency room with postop bleeding. The patient reports she had a port placed in her right chest on Saturday and reports she noted to have some bleeding and she called the cancer center, but came to the emergency room. The patient had chemotherapy done yesterday. She denied fever or chills. ER provider notified Dr. Cordero's office. Hemoglobin was dropped 2 grams since last week. She was admitted for further management. HOSPITAL COURSE: During this hospitalization, she was followed by Dr. Cordero and all that. She had a very low platelet count of 35-40 thousand and basically, all the measures were done. She continued to bleed. Oncology was seeing her here, transfusing her FFP, vitamin K and platelets. The patient continued to decline. I saw the patient on June 09 and that was the first say I saw the patient. I reviewed all the notes before by GI hospitalist and also by hematology-oncology and pulmonary was also seeing the patient. Basically, had a very poor prognosis. Please see their notes in the chart for further details. Basically, she . See all the notes in the chart for further details. <ELECTRONICALLY SIGNED> By: Tad Martinez MD 06/22/16 1603 1421 1510 Tad Martinez MD /nt
--- NOTE | ~2016-06-06 | EKG ---
[place] [address] [facility] [place] [address] ELECTROCARDIOGRAM REPORT Name: CHET LUO Room #: 237- DIS IN M.R.#: [id number] Admission: 06/06/16 Attend Phys: Gutierrez Quesada DO Discharge: 06/09/16 Date of : 35 Report #: [id number] THIS REPORT FOR: //name// [facility] Test Date: 2016-06-08 Test Time: 20:05:05 Pat Name: CHET LUO Department: Room: 237 Gender: F Success Coach: hector : 1935 Requested By: Mark Hinkle Order Number: [id number] MD: Andrews Blackwood Measurements Intervals [place] Rate: 157 P: [place]: QRS: 56 QRSD: 103 T: 228 QT: 265 QTc: 429 Interpretive Statements Atrial fibrillation with rapid V-rate Low voltage, extremity leads Poor R-wave progression Nonspecific ST and T wave abnormality Baseline wander in lead(s) V2 Compared to ECG 06/06/2016 11:53:15 Atrial fibrillation has replaced sinus rhythm nonspecific changes in the ST and T segments Electronically Signed On 06-10-2016 12:42:41 CDT by Andrews Blackwood [email or web address] <ELECTRONICALLY SIGNED> By: Andrews Blackwood MD, FACC 06/10/16 1242 04 04 Andrews Blackowod MD, FACC /EPI
--- NOTE | ~2016-06-06 | HC ---
[facility] [place] [address] CONSULTATION Name: QUINTIN LUOABHISHEK Butcher Room #: 237-P [facility] IN M.R.#: [id number] Admission: 06/06/16 Attend Phys: Gutierrez Quesada DO Discharge: 06/09/16 Date of : 35 Report #: [id number] THIS REPORT FOR: //name// CC: Inpatient Chart Gutierrez Quesada DO Maame Cordero MD DATE OF SERVICE: 06/07/2016 She is a patient of Dr. Quesada and Dr. Cordero. CHIEF COMPLAINT: We are asked to see this patient regarding nausea, vomiting, diarrhea and elevated liver enzymes. Recent full gastrointestinal consultation was performed approximately 2 weeks ago. It was placed in the computer by MARY Murillo and I would refer you to that excellent history for all historical data regarding this consult. The patient herself is complaining primarily of diarrhea. She has early satiety, which may be related to her metastatic breast cancer to the gastric wall. She is severely anemic and required transfusion. This is probably from infiltration of most of her bone narrow with metastatic breast cancer as well. She is thrombocytopenic and is oozing from IV sites including a central line that was recently placed in her right chest. She is extremely weak. She just had a Taxol treatment this past Saturday, which was about 48 hours ago. Her liver enzymes have increased as follows. Two weeks ago, her AST was 103, this week it is up to 204. Total bilirubin 2 weeks ago was 2.2, it is now 3.3, alkaline phosphatase was 228, now 318. ALT was 29 and now it is up to 53. Albumin is 2.3, was 2.1. Her INR was 1.5 and it is up to 2.0. She is not on any anticoagulant type of medication. Hemoglobin 2 weeks ago was in the 7-8 range. She presented with hemoglobin now at 7.4. She has been transfused since yesterday and hemoglobin is now up to 10. I was able to have a long talk with the patient and a friend who is visiting her and has permission to know all of the details of her disease and care. Regarding the elevated liver enzymes, I think there are multiple factors that have contributed to this, one maybe metastatic breast cancer to the liver, although we do not see any focal lesions. It could be diffusely metastatic. It is also possible with some of the medication she receives might be contributing such as Tylenol/acetaminophen, atorvastatin and recent Taxol therapy. All may have contributed to liver enzyme elevations as well. I have asked her what she expected with regard to the aggressiveness of our treatment for this widely metastatic cancer and she said plainly that she wanted everything done for right now because she has not completed all of the inheritance issues that are concerning her about her children. [address] [address] CONSULTATION Name: QUINTIN LUOABHISHEK Butcher Room #: 237-P [facility] IN M.R.#: [id number] Admission: 06/06/16 Attend Phys: Gutierrez Quesada DO Discharge: 06/09/16 Date of : 35 Report #: [id number] The patient felt that her illness was stabilized up until just recently and she did not need to proceed with her inheritance issues regarding her children just yet and then when she found that she have widely metastatic disease, she once again was trying to get her affairs in orders. It is possible that people that can help her with this may need to come to the hospital to get this completed. I am very concerned that her life expectancy is extremely short and we would like to facilitate her getting things done, so she will be at peace. I do think that liver biopsy would be a reasonable option in this patient. She is already having problems clotting her blood and even a transjugular liver biopsy carries a significant risk of bleeding at the puncture site. She is actually bleeding now from the central line placement in her right chest. Her expected for another 9 days from the present chemotherapy regimen and her platelet count may become much lower in that interim. With regard to the diarrhea, we will recommend she have stool sent for C. diff by PCR. Her early satiety is probably not going to be helped much by anything except possibly some Reglan, which will only worsen her diarrhea. Would continue supportive care for her including adequate pain control despite the fact that the pain medications may be harmful for her liver. I think it is important to keep her comfortable at this point. We will monitor her liver enzymes and her INR closely. Thank you very much once again for allowing me to participate in her care, Dr. Quesada and Dr. Cordero. <ELECTRONICALLY SIGNED> By: Ritika Blancas DO 06/12/164 1315 2346 Ritika Blancas DO /nt
--- NOTE | ~2016-06-06 | HC ---
[facility] [place] [address] CONSULTATION Name: CHET LUO Room #: 237-P [facility] IN M.R.#: [id number] Admission: 06/06/16 Attend Phys: Gutierrez Quesada DO Discharge: 06/09/16 Date of : 35 Report #: [id number] THIS REPORT FOR: //name// CC: Gutierrez Srivastava DATE OF SERVICE: 06/09/2016 NEPHROLOGY CONSULTATION REASON FOR CONSULTATION: Oliguria. HISTORY OF PRESENT ILLNESS: This is an 80-year-old female, who has been suffering the ravages of progressive metastatic breast cancer. All of this has been very nicely outlined in several recent notes by Dr. Catracho Cordero, who is her oncologist. She had just been in the hospital from the through the 25 of May of this year. When it was realized that she had more widely metastatic breast cancer, then was realized she has had bone marrow involvement, she has also apparently had some abdominal involvement, developed some ascites, also possibly some gastric wall involvement. There was talk of changing her chemotherapy around. She ended up having a new port placed for infusion, but ended up having bleeding from that as an outpatient, then was readmitted just shortly thereafter on June 06. She has been back in for the past 3 days. During that time, she has developed worsening dyspnea. She has had some interstitial changes on chest x-ray, dating back even to her hospitalization earlier in the month, but now these have become much more severe, these appear to be an alveolar pattern. She has had worsening anemia and has received some transfusions. She developed some atrial fib and was moved to the Intensive Care Unit yesterday. From a renal standpoint, the patient has had previously recorded fairly good urine outputs, and in fact yesterday was recorded to have 1150 mL of urine output. She has been on some Lasix. She was voiding spontaneously, but upon moving to the intensive care unit, had a Goel catheter placed, urine output has been about 150 mL. There have been questions of whether the Goel catheter was appropriately placed. She has had a positive bladder scan of up to 350 mL, but still the Goel has not been returning anything. In the meantime, the patient has a creatinine level of 1.6. Her baseline runs 1.6-1.8. It was 2.1 on admission, but has returned to this current level. Looking back, ultrasounds have shown somewhat dense kidneys, so she has the chronic kidney disease. In talking to the patient now, she tells me she is miserable, she was very uncomfortable as we attempted to change the Goel catheter. She says she does not feel like she has to void currently, although she did have some symptoms of it earlier. She is wearing a high flow mask at 15 liters per minute and still [place] [address] CONSULTATION Name: CHET LUO Room #: 237-P [facility] IN M.R.#: [id number] Admission: 06/06/16 Attend Phys: Gutierrez Quesada DO Discharge: 06/09/16 Date of : 35 Report #: [id number] PAST MEDICAL HISTORY: Widely metastatic breast cancer. Again, this has been well documented by Dr. Cordero and I will not repeat all of his notes. Basically, it was originally diagnosed in 1999. She was treated at that time with Taxotere, Cytoxan, and tamoxifen. She then had a recurrent disease, contralateral breast in January 2012. She was found to have mets in 2012 and has been undergoing various therapies since that time. Additionally, she has had some hypothyroidism, previous right total hip replacement, cholecystectomy, salpingo oophorectomy, atrial fibrillation and hiatal hernia. CURRENT MEDICATIONS: Diltiazem 180 mg daily, furosemide 40 mg daily, levothyroxine 0.025 mg daily, pantoprazole 40 mg daily, insulin, metoprolol 25 mg b.i.d., several p.r.n. medications. ALLERGIES: No known medical allergies. FAMILY HISTORY: Noncontributory. SOCIAL HISTORY: The patient is a , lives in [place], [place]. She is accompanied by her daughter and her granddaughter at this time. REVIEW OF SYSTEMS: Having more dyspnea. She has been very hypoxemic. She is on the high flow mask as noted above. Appetite has been poor. She has been having a lot of pain with the attempted Goel catheter placements. She was having bleeding around her port site and that has been a bit . She has developed some mild lower extremity edema. PHYSICAL EXAMINATION: GENERAL: Very pale, chronically ill appearing female, seen in the Intensive Care Unit. VITAL SIGNS: Blood pressure 105/53, heart rate 79 and irregular, temperature 36.2, and oxygen saturation only 92%. HEENT: Shows pupils are equal and reactive. Sclerae nonicteric. She has a face mask on. NECK: Supple. No JVD. CHEST: Shows some diffuse rales, very poor inspiration bilaterally. HEART: Has an irregularly irregular rhythm. ABDOMEN: Few bowel sounds present. Abdomen is nontender. I cannot palpate her because of enlarged bladder. EXTREMITIES: Show 1+ bilateral lower extremity edema. We note, she currently has a blood transfusion ongoing. LABORATORY DATA: Sodium 139, potassium 4.8, chloride 110, bicarbonate 15, BUN 42, creatinine 1.6, and glucose 105. Total bilirubin 4.1, calcium 5.9, total protein 6.0, and albumin 2.3. INR is 1.7. White count 8.2, hemoglobin 7.1 before transfusion and it had gotten up to 10.0 after transfusion after [facility] [address] [place] [address] CONSULTATION Name: CHET LUO Room #: 237-P [facility].#: [id number] Admission: 06/06/16 Attend Phys: Gutierrez Quesada DO Discharge: 06/09/16 Date of : 35 Report #: [id number] admission. Hematocrit 20.3 and platelets 89,000. No current urinalysis. ASSESSMENT: 1. Oliguria in this chronically ill and worsening female. Her hypoxemia is very concerning. I am concerned that her chest x-ray is consistent with interstitial lung changes from metastatic breast cancer. She is not oxygenating. She has been dropping her hemoglobin. She is requiring transfusions. Her chest x-ray has been gradually worsening over the past few weeks and I am concerned that we are seeing a preterminal series of events here. Concerning her oliguria, she was making good urine yesterday and had over a liter out, voiding spontaneously. With the bladder scan issue, I am concerned that what the bladder scan is picking up might well be ascites and not a full bladder. We will leave the current Goel in place. She was very uncomfortable with the attempted placement. If she still remains so oliguric, we will give another ultrasound tomorrow to see if that is more ascites or if it is true urine in the bladder where we may need Urology to help out, but again I think we are seeing her on a generalized decline. She does have some underlying chronic kidney disease as noted above, it has been around for many years. She is at her baseline creatinine. We will recheck labs in the morning. 2. Severe anemia, requiring multiple transfusions. Again, she has had some actual bleeding. She is also very thrombocytopenic. She has known bone marrow involvement from her breast cancer. PLAN: At this time, we will monitor her urine output. I will recheck labs in the morning. We will get urinalysis when urine becomes available. Again, we will consider the repeat ultrasound in the morning pending her status at that time. We will certainly follow along the care of this very pleasant, but unfortunate female. <ELECTRONICALLY SIGNED> By: Jeronimo Montoya MD 06/14/16 1116 1707 0055 Terrance Saucedo MD /nt
--- NOTE | ~2016-06-06 | EKG ---
[place] [address] [facility] [place] [address] ELECTROCARDIOGRAM REPORT Name: CHET LUO Room #: 302-P ADM IN M.R.#: [id number] Admission: 06/06/16 Attend Phys: Gutierrez Quesada DO Discharge: Date of : 35 Report #: [id number] THIS REPORT FOR: //name// [facility] ED Test Date: 2016-06-06 Test Time: 11:53:15 Pat Name: CHET LUO Department: Room: [facility] Gender: F Supervisor Patching: NEO : 1935 Requested By: Citlaly Galvez Order Number: [id number] MD: Andrews Blackwood Measurements Intervals [place] Rate: 66 P: [place]: QRS: 57 QRSD: 118 T: 3 QT: 442 QTc: 464 Interpretive Statements Sinus rhythm with first degree AV block Low voltage, extremity leads Compared to ECG 05/21/2016 14:18:31 no significant change was found Electronically Signed On 06-07-2016 8:17:29 CDT by Andrews Blackwood [email or web address] <ELECTRONICALLY SIGNED> By: Andrews Blackwood MD, [facility] 06/07/16 0817 52 52 Andrews Blackwood MD, [facility] /EPI
--- NOTE | ~2016-06-06 | HC ---
[facility] [place] [address] CONSULTATION Name: QUINTIN LUOABHISHEK Butcher Room #: 237-P [facility] IN M.R.#: [id number] Admission: 06/06/16 Attend Phys: Gutierrez Quesada DO Discharge: 06/09/16 Date of : 35 Report #: [id number] THIS REPORT FOR: //name// CC: Gutierrez Antony MD REASON FOR CONSULTATION: History of breast cancer and bleeding. HISTORY OF PRESENT ILLNESS: The patient is a very pleasant 80-year-old female, who has been a patient of mine for quite a few years, who has had progressive breast cancer, recently found to have extensive involvement of the bone marrow as well as extensive involvement of the gastric wall, early satiety and cytopenias. She began weekly Taxol last week. She developed some bleeding around the port that had been placed about a week ago and did not stop to pressure at home. Here in the hospital, she was found to have an INR that was elevated at 2 and also platelets that were low in around 74 region. She received 2 units of blood with a hemoglobin of 10 and bleeding had stopped. At home, she had noted some bruising of her skin but not really extra bleeding like she is having now. She does have quite a bit of ecchymosis on her right chest, below the port . Recent BUN and creatinine were 39 and 1.7 respectively. AST was 204, which is up from 103 about 2 weeks ago; total bilirubin 3.3, which is up from 2.2. ALT 53, which is up from 29. Albumin is 2.3. INR at this time had been 2, last admit had been 1.7. White count is 6.8, hemoglobin is 10 after transfusion, it was 9.5 when she left, 7.4 on admission yesterday. Platelet count had been 88 when she was here last week, 74 yesterday, 52 today. Differential has an ANC of 5.4. There are large platelets available. PAST MEDICAL HISTORY: Notable for the history of the breast cancer originally diagnosed in 1999, left-sided, stage II, ER/NE positive, had 4 cycles of Taxotere, Cytoxan, and was on tamoxifen. Note the Arimidex was poorly tolerated at that time. She had a second contralateral left-sided breast cancer in January 2012, 17 nodes positive, at that time also had a bony metastasis in February 2012. She was begun on Faslodex and Arimidex, had a drop in her tumor markers. She had radiation therapy with Dr. Sushila Antony. In January 2015, had progressive disease, then began palbociclib and Femara and was on that until March 2016 received at the beginning and now has received one dose of Taxol. 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 SOCIAL HISTORY: Former smoker. No alcohol recently. several [facility] [address] [place] [address] CONSULTATION Name: CHET LUO Room #: 237-P [facility] IN M.R.#: [id number] Admission: 06/06/16 Attend Phys: Gutierrez Quesada DO Discharge: 06/09/16 Date of : 35 Report #: [id number] years ago. MEDICATIONS: At this time in the hospital currently include furosemide 20 daily, levothyroxine 25 mcg daily, pantoprazole 40 daily, insulin on a sliding scale, metoprolol 25 b.i.d., atorvastatin 10 at bedtime, hydralazine p.r.n., IV fluids. PHYSICAL EXAMINATION: GENERAL: The patient appears her stated age. VITAL SIGNS: Height is 5 feet 2 inches and 157.5 cm. Weight 192 pounds which is 87.2 kilograms. Blood pressure is 159/54, O2 sat 91%, pulse 67, temperature 97.5. MOOD: The patient is very alert and pleasant, somewhat tired from a long night. NEUROLOGIC: Moving all extremities. HEENT: Oropharynx is clear. She does have an upper plate in place. The patient's skin has the port in the right chest with some ecchymosis, also has antecubital IV on the left with some ecchymosis and bleeding underneath the clear dressing. LYMPHATICS: No lymph nodes in the supraclavicular or cervical region. ABDOMEN: Slightly obese, nontender. EXTREMITIES: Without clubbing or cyanosis, has a little bit of edema about up to right below the knee on the right side and about mid delcid on the left. ASSESSMENT AND PLAN: 1. Metastatic breast cancer, began Taxol last week, we will probably hold until next week, hopefully she will respond, she is aware that she may not. 2. Coagulopathy. We will give vitamin K and repeat pro-time after the vitamin K. 3. Thrombocytopenia. We will recheck in the morning. If her INR does not improve, we will consider FFP so to decrease risk for bleeding. 4. Also history of arthritis, had been on meloxicam. This should be held. 5. 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 Given the miliary involvement of the stomach and the bone, I would not be surprised if the liver has some involvement. We will follow with you. <ELECTRONICALLY SIGNED> By: Catracho Cordero MD 06/10/16 [id number] Catracho Cordero MD /nt
[2016-06-06 11:43] VITALS: BP 174/55
[2016-06-06 12:52] LABS: MCH 37.1 pg (26.0-34.0); WBC 8.5 thou/uL (4.0-11.0)
[2016-06-06 12:54] LABS: HEMATOCRIT 22.5 % (37.0-47.0); HEMOGLOBIN 7.4 gm/dL (12.0-15.0); MCHC 33.1 g/dL (28.0-37.0); MCV 112.1 fL (80.0-100.0); RDW 26.3 % (10.5-14.5)
[2016-06-06 12:56] LABS: MANUAL DIFF YES
[2016-06-06 13:13] LABS: ALBUMIN 2.3 g/dL (3.4-5.0); APTT 38.5 Seconds (24.5-32.8); CALCIUM 7.3 mg/dL (8.5-10.1); CREATININE 2.1 mg/dL (0.6-1.0); PROTIME 21.2 Seconds (9.3-11.4); TOTAL BILIRUBIN 3.3 mg/dL (<0.1-1.0); TOTAL PROTEIN 6.1 g/dL (6.4-8.2)
[2016-06-06 13:15] LABS: POTASSIUM 6.1 mmol/L (3.5-5.1)
[2016-06-06 13:50] LABS: ABSOLUTE NEUTROPHILS 5.8 thou/uL (1.4-8.2); ANISOCYTOSIS 3+; LARGE PLATELETS FEW; MACROCYTES 2+; NUCLEATED RBCS 17 /100WBC; PLATELET COUNT 74 thou/uL (150-400); PLATELET ESTIMATE SLIGHTLY DECREASED; TOTAL CELL COUNT 100
[2016-06-06 16:52] VITALS: BP 154/63
[2016-06-06] MEDS ORDERED: AZITHROMYCIN 2250 MG PO (18:20)
[2016-06-06] MEDS ORDERED: TENORMIN50 MG PO (18:20)
[2016-06-06] MEDS ORDERED: XGEVA120 MG/1.7 SQ (18:24)
[2016-06-06] MEDS ORDERED: DOCUSATE CALCI240 MG PO (18:24)
[2016-06-06] MEDS ORDERED: MOBIC7.5 MG PO (18:26)
[2016-06-06] MEDS ORDERED: PRILOSEC 20 MG20 MG PO (18:27)
[2016-06-06] MEDS ORDERED: ONDANSETRON HCL4 M2 PO (18:27)
[2016-06-06] MEDS ORDERED: REQUIP 0.25 M0.25 MG PO (18:29)
[2016-06-06] MEDS ORDERED: MIRAPEX 0.250.25 M1 PO (18:29)
[2016-06-06 19:45] VITALS: BP 144/62
[2016-06-07] VITALS (7 sets, daily range): BP systolic 121–170; BP diastolic 48–73
[2016-06-07 08:33] LABS: HEMATOCRIT 30.6 % (37.0-47.0); MCH 33.7 pg (26.0-34.0); MCHC 32.7 g/dL (28.0-37.0); PLATELET COUNT 52 thou/uL (150-400); RBC 2.97 mil/uL (4.20-5.00); RDW 25.6 % (10.5-14.5); WBC 6.8 thou/uL (4.0-11.0)
[2016-06-07 08:36] LABS: MCV 103.1 fL (80.0-100.0)
[2016-06-07 08:37] LABS: MANUAL DIFF YES
[2016-06-07 08:39] LABS: CALCIUM 7.4 mg/dL (8.5-10.1); CREATININE 1.7 mg/dL (0.6-1.0); POTASSIUM 5.5 mmol/L (3.5-5.1)
[2016-06-07 09:09] LABS: ABSOLUTE NEUTROPHILS 5.4 thou/uL (1.4-8.2); ANISOCYTOSIS 3+; LARGE PLATELETS FEW; MACROCYTES 2+; NUCLEATED RBCS 12 /100WBC; OVALOCYTES 1+; PLATELET ESTIMATE DECREASED; TOTAL CELL COUNT 100
[2016-06-07 15:53] LABS: PROTIME 31.9 Seconds (9.3-11.4)
[2016-06-07 15:56] LABS: INR 3.1
[2016-06-08] VITALS (28 sets, daily range): BP systolic 93–189; BP diastolic 51–126
[2016-06-08 04:05] LABS: PROTIME 16.9 Seconds (9.3-11.4)
[2016-06-08 04:11] LABS: CALCIUM 7.2 mg/dL (8.5-10.1); CREATININE 1.7 mg/dL (0.6-1.0); POTASSIUM 4.9 mmol/L (3.5-5.1)
[2016-06-08 04:18] LABS: ALBUMIN 2.6 g/dL (3.4-5.0); DIRECT BILIRUBIN 1.3 mg/dL (<0.1-0.3); TOTAL BILIRUBIN 3.8 mg/dL (<0.1-1.0); TOTAL PROTEIN 6.6 g/dL (6.4-8.2)
[2016-06-08 04:19] LABS: HEMOGLOBIN 8.9 gm/dL (12.0-15.0); WBC 6.8 thou/uL (4.0-11.0)
[2016-06-08 04:21] LABS: HEMATOCRIT 25.9 % (37.0-47.0); MCH 34.5 pg (26.0-34.0); MCHC 34.5 g/dL (28.0-37.0); RBC 2.59 mil/uL (4.20-5.00); RDW 26.1 % (10.5-14.5)
[2016-06-08 04:27] LABS: MANUAL DIFF YES
[2016-06-08 04:34] LABS: INR 1.6
[2016-06-08 05:38] LABS: ABSOLUTE NEUTROPHILS 6.4 thou/uL (1.4-8.2); NUCLEATED RBCS 8 /100WBC; TOTAL CELL COUNT 100
[2016-06-08 05:39] LABS: ANISOCYTOSIS 4+; LARGE PLATELETS RARE; MACROCYTES 2+; MICROCYTES 1+; POLYCHROMASIA OCCASIONAL
[2016-06-08 05:41] LABS: PLATELET COUNT 48 thou/uL (150-400)
[2016-06-08 18:23] LABS: CALCIUM 6.6 mg/dL (8.5-10.1); CREATININE 1.5 mg/dL (0.6-1.0); POTASSIUM 4.7 mmol/L (3.5-5.1)
[2016-06-08 20:42] LABS: HEMATOCRIT 22.2 % (37.0-47.0); HEMOGLOBIN 7.8 gm/dL (12.0-15.0); MCH 34.5 pg (26.0-34.0); MCHC 34.9 g/dL (28.0-37.0); RBC 2.25 mil/uL (4.20-5.00); RDW 25.2 % (10.5-14.5); WBC 8.6 thou/uL (4.0-11.0)
[2016-06-08 21:02] LABS: ALBUMIN 2.3 g/dL (3.4-5.0); CALCIUM 6.3 mg/dL (8.5-10.1); CREATININE 1.5 mg/dL (0.6-1.0); POTASSIUM 4.5 mmol/L (3.5-5.1); TOTAL BILIRUBIN 4.1 mg/dL (<0.1-1.0)
[2016-06-09] VITALS (61 sets, daily range): BP systolic 95–137; BP diastolic 34–87
[2016-06-09 04:15] LABS: HEMATOCRIT 20.3 % (37.0-47.0); HEMOGLOBIN 7.1 gm/dL (12.0-15.0); MCH 34.7 pg (26.0-34.0); MCV 98.9 fL (80.0-100.0); PLATELET COUNT 89 thou/uL (150-400); RBC 2.06 mil/uL (4.20-5.00); RDW 25.2 % (10.5-14.5); WBC 8.2 thou/uL (4.0-11.0)
[2016-06-09 04:19] LABS: MANUAL DIFF YES
[2016-06-09 04:26] LABS: INR 1.7; PROTIME 18.1 Seconds (9.3-11.4)
[2016-06-09 04:29] LABS: CREATININE 1.6 mg/dL (0.6-1.0); POTASSIUM 4.8 mmol/L (3.5-5.1)
[2016-06-09 04:41] LABS: CALCIUM 5.9 mg/dL (8.5-10.1)
[2016-06-09 07:06] LABS: ABSOLUTE NEUTROPHILS 7.8 thou/uL (1.4-8.2); ANISOCYTOSIS 3+; NUCLEATED RBCS 1 /100WBC; TOTAL CELL COUNT 100
[2016-06-09 07:07] LABS: MACROCYTES 2+; MICROCYTES 1+; POLYCHROMASIA 1+
[2016-06-09 07:08] LABS: PLATELET ESTIMATE DECREASED
[2016-06-09 21:32] LABS: ABG SAMPLE TYPE ARTERIAL; BE(vivo) -16.2 mmol/L (-2 to +3); O2(CT) 11.8 mL/dL (15.0-23.0); O2Hb 93.3 % (92.0-98.0); PCO2 30.7 mmHg (35.0-45.0); PO2 84.6 mmHg (80.0-100.0); STICK SITE L.RADIAL; pH 7.171 (7.360-7.450); sO2 93.8 % (92.0-98.0); tCO2 11.9 mmol/L (24.0-30.0)
== END 2016-06-09 23:40 | DRG 919 ==
LOC: ER 11:37 → 3N 14:41 → EROBS 14:41 → 3N 16:52 → ICU 06-08 19:31
PROVIDERS: Family Medicine; Internal Medicine Gastroenterology; Internal Medicine Hematology & Oncology; Internal Medicine Pulmonary Disease; Nurse Practitioner; Physician Assistant
PROC: 30233K1 Transfusion of Nonautologous Frozen Plasma into Peripheral Vein, Percutaneous Approach (ICD-10-PCS; principal; 2016-06-07)
PROC: 30233N1 Transfusion of Nonautologous Red Blood Cells into Peripheral Vein, Percutaneous Approach (ICD-10-PCS; principal; 2016-06-07)
PROC: 30233L1 Transfusion of Nonautologous Fresh Plasma into Peripheral Vein, Percutaneous Approach (ICD-10-PCS; principal; 2016-06-07)
DX: J95.830 Postprocedural hemorrhage of a respiratory system organ or structure following a respiratory system procedure (principal); E43 Unspecified severe protein-calorie malnutrition; N17.9 Acute kidney failure, unspecified; C79.52 Secondary malignant neoplasm of bone marrow; D68.9 Coagulation defect, unspecified; R04.2 Hemoptysis; C50.919 Malignant neoplasm of unspecified site of unspecified female breast; E86.0 Dehydration; M47.9 Spondylosis, unspecified; D64.9 Anemia, unspecified; D69.6 Thrombocytopenia, unspecified; E03.9 Hypothyroidism, unspecified; K21.9 Gastro-esophageal reflux disease without esophagitis; K76.89 Other specified diseases of liver; I48.91 Unspecified atrial fibrillation; E11.22 Type 2 diabetes mellitus with diabetic chronic kidney disease; N18.9 Chronic kidney disease, unspecified; R34 Anuria and oliguria; E87.5 Hyperkalemia; Z87.11 Personal history of peptic ulcer disease; Z90.12 Acquired absence of left breast and nipple; Z90.49 Acquired absence of other specified parts of digestive tract; Z85.3 Personal history of malignant neoplasm of breast; Z87.891 Personal history of nicotine dependence; Z68.35 Body mass index [BMI] 35.0-35.9, adult; Z90.721 Acquired absence of ovaries, unilateral; Z79.899 Other long term (current) drug therapy; Y83.8 Other surgical procedures as the cause of abnormal reaction of the patient, or of later complication, without mention of misadventure at the time of the procedure; Y82.8 Other medical devices associated with adverse incidents; Z96.643 Presence of artificial hip joint, bilateral; Z66 Do not resuscitate
CPT/HCPCS: 10078; 10096; 23012; 85076